=== PATIENT | female | born 1960 | race Caucasian/White ===

== ENCOUNTER 2017-05-17 12:27 | Emergency (ER) | payer OTHER ==
[~2017-05-17] VITALS: Ht 154.9 cm; Wt 59.0 kg
--- NOTE | 2017-05-17 13:35 | NUR ---
PATIENT AMBULATED TO THE BATHROOM NO ASSIST SLOW STEADY GAIT. PATIENT CHANGING INTO A HOSPITAL GOWN.
--- NOTE | 2017-05-17 13:40 | NUR ---
PATIENT WAS EVALUTED BY DR CRAVEN.
[2017-05-17 14:40] VITALS: BP 133/76
--- NOTE | 2017-05-17 14:41 | NUR ---
Patient discharged to home in stable conditon. Written and verbal after care instructions given. Patient verbalizes understanding of instructions.
== END 2017-05-17 14:51 | disposition home or self-care (01) ==
LOC: ER 12:27
DX: M25.512 Pain in left shoulder (principal); M25.561 Pain in right knee; M25.522 Pain in left elbow; E03.9 Hypothyroidism, unspecified; Z88.5 Allergy status to narcotic agent; E78.00 Pure hypercholesterolemia, unspecified; W18.30XA Fall on same level, unspecified, initial encounter; Y92.89 Other specified places as the place of occurrence of the external cause; Y93.89 Activity, other specified; Y99.8 Other external cause status
CPT/HCPCS: 72170; 73060; 73080; 73090; 73564; 99284; A4663

== ENCOUNTER 2018-05-11 23:50 | Emergency (ER) | END 2018-05-12 01:00 | disposition home or self-care (01) | DX: H10.32 Unspecified acute conjunctivitis, left eye (principal); R53.81 Other malaise; E78.00 Pure hypercholesterolemia, unspecified; E03.9 Hypothyroidism, unspecified; Z88.6 Allergy status to analgesic agent ==

== ENCOUNTER 2020-07-29 03:13 | Emergency (ER) | payer OTHER ==
[~2020-07-29] VITALS: Ht 157.5 cm; Wt 61.2 kg
[~2020-07-29 03:13] MED LIST: LEVOTHYROXINE 50 MCG TABLET; LOVASTATIN 10 MG TABLET; PROPRANOLOL 20 MG TABLET
[2020-07-29] MEDS ORDERED: OXYCODONE/APAP 5-325 MG TABLET ONE (04:57)
[2020-07-29] MEDS ORDERED: OXYCODONE/APAP 5-325 MG TABLET PO ONE (05:00)
--- NOTE | 2020-07-29 05:05 | NUR ---
Pt ambulatory, breathing and heartbeat regular, c/o R hip pain chronic from chronic condition. at the bedside. Comfort & safety ensured.
[2020-07-29 05:15] LABS: BASOPHILS % (AUTO) 0.4 % (0.0-2.0); EOSINOPHILS % (AUTO) 0.2 % (0.0-7.0); HEMATOCRIT 41.2 % (31.2-41.9); LYMPHOCYTES # (AUTO) 2.6 K/uL (20.0-40.0); MEAN CORPUSCULAR HEMOGLOBIN 29.4 uug (24.7-32.8); MEAN CORPUSCULAR HGB CONC 34 g/dL (32.3-35.6); MEAN CORPUSCULAR VOLUME 86.4 fL (75.5-95.3); MONOCYTES # (AUTO) 0.5 K/uL (2.0-10.0); MONOCYTES % (AUTO) 5.3 % (0.0-11.0); NEUTROPHILS # (AUTO) 6.5 K/uL (1.8-8.9); NEUTROPHILS % (AUTO) 67.1 % (38.5-71.5); PLATELET COUNT (AUTO) 333 K/uL (179-408); RED BLOOD CELL COUNT(AUTO) 4.77 MIL/uL (3.63-4.92); WHITE BLOOD COUNT (AUTO) 9.7 K/uL (3.8-11.8)
[2020-07-29 05:16] LABS: CREATININE 1.1 mg/dL (0.6-1.3); POTASSIUM 4.1 mmol/L (3.5-5.1)
--- NOTE | 2020-07-29 05:20 | NUR ---
Pt walk to bathroom independently, urine sample collected.
[2020-07-29] MEDS ORDERED: ONDA-104 PO (05:45)
[2020-07-29] MEDS ORDERED: OXYC-117 PO (05:45)
[2020-07-29] MEDS ORDERED: CLON0.1T PO (05:46)
[2020-07-29 06:06] VITALS: BP 138/72
== END 2020-07-29 06:07 | disposition home or self-care (01) ==
LOC: ER 03:17
DX: I10 Essential (primary) hypertension (principal); M25.551 Pain in right hip; R73.9 Hyperglycemia, unspecified; E03.9 Hypothyroidism, unspecified; Z79.890 Hormone replacement therapy; G89.29 Other chronic pain; M25.552 Pain in left hip
CPT/HCPCS: 36415; 83735; 85025; A4663

== ENCOUNTER 2022-06-23 23:33 | Emergency (ER) | payer OTHER ==
[~2022-06-23] VITALS: Ht 152.4 cm; Wt 56.7 kg
[~2022-06-23 23:33] MED LIST changes: +CLON0.1T PO; +ONDA-104 PO; +OXYC-117 PO
[2022-06-24 00:52] LABS: HEMATOCRIT 41.5 % (31.2-41.9); MEAN CORPUSCULAR HEMOGLOBIN 27.9 uug (24.7-32.8); MEAN CORPUSCULAR VOLUME 86.2 fL (75.5-95.3); PLATELET COUNT (AUTO) 405 K/uL (179-408)
[2022-06-24 00:55] LABS: CARBON DIOXIDE 30 mmol/L (21-32); CHLORIDE 101 mmol/L (98-107); CREATININE 0.7 mg/dL (0.6-1.3); GLUCOSE 112 mg/dL (74-106); POTASSIUM 4.4 mmol/L (3.5-5.1); UREA NITROGEN, BLOOD 13 mg/dL (7-18)
--- NOTE | 2022-06-24 02:50 | NUR ---
Patient discharged to home in stable condition. Written and verbal after care instructions given. Patient verbalizes understanding of instructions. Stressed follow up or return to ER for worsening s/s. Patient is a/ox4, NAD noted. patient is able to walk with steady gait. Patient is accompanied by her
[2022-06-24 02:51] VITALS: BP 123/75
== END 2022-06-24 02:51 | disposition home or self-care (01) ==
LOC: ER 23:33
DX: R07.89 Other chest pain (principal); E03.9 Hypothyroidism, unspecified; R03.0 Elevated blood-pressure reading, without diagnosis of hypertension; E78.00 Pure hypercholesterolemia, unspecified; Z79.890 Hormone replacement therapy; Z79.899 Other long term (current) drug therapy
CPT/HCPCS: 36415; 71045; 83735; 84484; 85025; 93005